=== PATIENT | male | born 1975 | race Caucasian/White ===

== ENCOUNTER 2024-03-27 12:08 | Day surgery (SDC) | payer MEDICAID ==
[~2024-03-27 12:08] MED LIST: Lactated Ringers 1,000 ML IV SCH
[2024-03-27] MEDS: Lactated Ringers 1,000 ML IV SCH (12:32)
[2024-03-27] MEDS ORDERED: Propofol 200 MG/20 ML SDV ONE ×3 (13:03→15:27)
[2024-03-27] MEDS ORDERED: fentaNYL 100 MCG/2 ML SDV ONE (13:03)
== END 2024-03-27 16:47 | disposition home or self-care (01) ==
LOC: VM.SDS 12:08
PROVIDERS: ATTEND Family Medicine
DX: Z12.11 Encounter for screening for malignant neoplasm of colon (principal); D12.8 Benign neoplasm of rectum; K63.5 Polyp of colon; Z86.0100 Personal history of colon polyps, unspecified; F41.1 Generalized anxiety disorder
CPT/HCPCS: 00811; J2704; J3010; J7120